=== PATIENT | male | born 1970 | race Caucasian/White ===

== ENCOUNTER 2021-10-08 03:49 | Emergency (ER) | payer OTHER ==
[~2021-10-08 03:49] MED LIST: BACTROBAN OINT22 GM EXT; ERYTHROMYCIN O3.5 GM OD; NARCAN 2 MG/21 MG/ML; TESSALON PERLE100 MG PO
[2021-10-08 04:36] LABS: HEMOGLOBIN 15.2 gm/dl (14.0-17.5); RED BLOOD COUNT 4.83 M/UL (4.20-5.50); WHITE BLOOD COUNT 8.4 K/UL (4.5-11.0)
[2021-10-08 04:56] LABS: BUN/CREATININE RATIO 25 (0-10)
== END 2021-10-08 09:37 | disposition home or self-care (01) ==
LOC: ER1 03:49
PROVIDERS: Family Medicine
DX: R07.9 Chest pain, unspecified (principal); I10 Essential (primary) hypertension; J44.9 Chronic obstructive pulmonary disease, unspecified; F17.200 Nicotine dependence, unspecified, uncomplicated
CPT/HCPCS: 71045; 80053; 82550; 82553; 84484; 85025; 93005; 99285; Q9967